=== PATIENT | male | born 1985 | race Two or more races ===

== ENCOUNTER 2020-09-21 20:31 | Emergency (ER) | payer OTHER ==
[~2020-09-21] VITALS: Ht 170.2 cm; Wt 111.1 kg
[2020-09-21 20:42] VITALS: BP 134/82; Ht 170.2 cm; Wt 111.1 kg
== END 2020-09-21 20:59 | disposition other institution (70) ==
LOC: ED 20:31
DX: Z02.89 Encounter for other administrative examinations (principal)